=== PATIENT | male | born 1950 | race Caucasian/White ===

== ENCOUNTER 2022-07-09 11:43 | Emergency (ER) | payer OTHER ==
[~2022-07-09] VITALS: Ht 182.9 cm; Wt 85.3 kg
[2022-07-09] MEDS ORDERED: IBUP-2070 PO (13:41)
[2022-07-09 13:58] VITALS: BP 132/61
== END 2022-07-09 14:05 | disposition home or self-care (01) ==
LOC: EDH 11:43
DX: M70.21 Olecranon bursitis, right elbow (principal); Y93.9 Activity, unspecified
CPT/HCPCS: 73070